=== PATIENT | female | born 1950 | race African-American/Black ===

== ENCOUNTER → 2017-02-27 | Outpatient (CLI) | payer MEDICARE | LOC: MC.RAD 08:00 | DX: Z12.31 Encounter for screening mammogram for malignant neoplasm of breast (principal) ==

== ENCOUNTER → 2019-04-14 | Outpatient (CLI) | payer MEDICARE | LOC: MC.RAD 11:13 | DX: Z12.31 Encounter for screening mammogram for malignant neoplasm of breast (principal) ==

== ENCOUNTER → 2020-05-03 | Outpatient (CLI) | payer MEDICARE ==
[~2020-05-03] MED LIST: ASPIRIN 81M81 MG/TA2 PO; CALCIUM 600 PLU1 TAB PO; CALCIUM CARBON650 M2; LIPITOR 10MG10 MG; LIPITOR 40MG TA40 MG PO; MULTI VITAMINS1 TAB; MULTIPLE VITAMI1 CAP PO; NATURE'S BLE1000 MCG; NORVASC 10MG10 MG PO; NORVASC 5MG5 MG/TAB PO; PRINZIDE 12.5 M1 TA1 PO; TIMOPTIC 0.25% OU; VITAMINE200; XALATAN EYE DROPS OU; ZANTAC 7575 MG PO
== END ==
LOC: MC.RAD 04-18 09:15
DX: Z12.31 Encounter for screening mammogram for malignant neoplasm of breast (principal)

== ENCOUNTER 2020-07-14 08:59 | Emergency (ER) | payer MEDICARE ==
[~2020-07-14] VITALS: Ht 157.5 cm; Wt 101.4 kg
[2020-07-14 09:21] VITALS: TEMP 98.4
[2020-07-14 10:42] LABS: BASO % 0.3 % (0.0-2.0); EOS # 0.2 (0.0-0.7); EOS % 4.9 % (0-4.0); GRAN # 1.3 (1.4-6.5); GRAN % 36.2 % (42.2-75.2); HEMOGLOBIN 11.8 g/dl (12.5-16.0); LYMPH # 1.6 (1.2-3.4); LYMPH % 46.2 % (20.0-51.0); MEAN CELL VOLUME 86 fl (80.0-100.0); MEAN CORPUSCULAR HEMOGLOBIN 29 pg (27.0-31.0); MEAN CORPUSCULAR HGB CONC 34 g/dl (33.0-37.0); MEAN PLATELET VOLUME 10.6 fl (7.4-10.4); MONO # 0.4 (0.1-0.6); MONO % 12.1 % (1.7-9.3); PLATELET COUNT 160 K/mm3 (130-400); RED BLOOD COUNT 4.06 M/mm3 (4.10-5.30); REDCELL DISTRIBUTION WIDTH-CV 12.1 % (11.5-14.5)
[2020-07-14 10:47] LABS: BILIRUBIN,TOTAL 0.4 mg/dL (0.0-1.0); CALCIUM 9.2 mg/dL (8.4-10.2); CREATININE, serum 0.68 (0.52-1.25); TOTAL PROTEIN 7.9 gm/dL (6.4-8.2)
[2020-07-14 11:10] VITALS: BP 127/79; PULSE 61
== END 2020-07-14 11:23 | disposition home or self-care (01) ==
LOC: COL.ER 08:59
PROVIDERS: Family Medicine
DX: S06.0X9A Concussion with loss of consciousness of unspecified duration, initial encounter (principal); I10 Essential (primary) hypertension; Z91.041 Radiographic dye allergy status; Z79.82 Long term (current) use of aspirin; W01.0XXA Fall on same level from slipping, tripping and stumbling without subsequent striking against object, initial encounter

== ENCOUNTER 2021-05-11 17:09 | Emergency (ER) | payer MEDICARE ==
[~2021-05-11] VITALS: Ht 157.5 cm; Wt 88.2 kg
[2021-05-11 17:12] VITALS: TEMP 97.2
[2021-05-11 19:55] VITALS: BP 175/89; PULSE 60
== END 2021-05-11 19:55 | disposition home or self-care (01) ==
LOC: COL.ER 17:09
DX: S06.0X0A Concussion without loss of consciousness, initial encounter (principal); S01.112A Laceration without foreign body of left eyelid and periocular area, initial encounter; I10 Essential (primary) hypertension; Z79.899 Other long term (current) drug therapy; W10.8XXA Fall (on) (from) other stairs and steps, initial encounter; Y93.01 Activity, walking, marching and hiking

== ENCOUNTER → 2021-08-27 | Outpatient (CLI) | payer MEDICARE | LOC: MC.RAD 10:23 | DX: Z12.31 Encounter for screening mammogram for malignant neoplasm of breast (principal) ==

== ENCOUNTER → 2023-06-16 | Outpatient (CLI) | payer MEDICARE | LOC: COL.RAD 09:55 | DX: G45.9 Transient cerebral ischemic attack, unspecified (principal) ==

== ENCOUNTER 2023-12-28 11:42 | Day surgery (SDC) | payer MEDICARE ==
[~2023-12-28] VITALS: Ht 160 cm; Wt 73.7 kg
[~2023-12-28 11:42] MED LIST changes: +LR 1,000 ML IV SCH; +Ondansetron 4 MG/2 ML VIAL IV PRN
[2023-12-28] MEDS ORDERED: PRIL40 PO (12:34)
[2023-12-28 12:35] VITALS: BP 124/67; PULSE 82; TEMP 97.6
[2023-12-28 13:18] VITALS: TEMP 97
[2023-12-28 13:25] VITALS: BP 114/61; PULSE 71
--- NOTE | 2023-12-28 13:33 | NUR ---
1325 PATIENT RETURNS TO [facility] [place] [facility] VIA CART. PT AWAKE AND ALERT. RESPIRATIONS UNLABORED. AMBULATED TO RECLINER CHAIR WITH 2:1 SBA. PT DENIES NAUSEA OR ABDOMINAL PAIN. HOOKED UP TO MONITOR AND VS OBTAINED. CALL LIGHT AT SIDE. 1330 PATIENT TOLERATING HOT TEA AND BLUEBERRY MUFFIN WITHOUT NAUSEA OR DIFFICULTY SWALLOWING. 1330 IN ROOM SPEAKING WITH PATIENT. 1340 D/C INSTRUCTIONS REVIEWED WITH PATIENT. PT VERBALIZED UNDERSTANDING AND A COPY OF INSTRUCTIONS PROVIDED IN D/C FOLDER. 1350 PATIENT DRESSES SELF. 1405 PATIENT DISCHARGED FROM UNIT VIA W/C TO A PERSONAL VEHICLE. PT LEFT HOSPITAL IN STABLE CONDITION.
[2023-12-28 13:35] VITALS: BP 120/57; PULSE 74
[2023-12-28 13:55] VITALS: BP 122/59; PULSE 55
== END 2023-12-28 14:25 | disposition home or self-care (01) ==
LOC: SDCO 11:42
DX: R19.5 Other fecal abnormalities (principal); D64.9 Anemia, unspecified; K64.0 First degree hemorrhoids; K52.9 Noninfective gastroenteritis and colitis, unspecified; K57.30 Diverticulosis of large intestine without perforation or abscess without bleeding; Z79.899 Other long term (current) drug therapy; Z63.4 Disappearance and death of family member
CPT/HCPCS: J2704; J7120